=== PATIENT | female | born 1980 | race Caucasian/White ===

== ENCOUNTER 2025-02-06 09:38 | Emergency (ER) | payer SELFPAY ==
--- NOTE | 2025-02-06 09:41 | XR_ITS ---
WS: [id number] Exam: XR chest 1V portable [id number] Date/Time of Exam: 02/06/2025 10:23 AM Reason For Exam: dyspnea/cough Comparison 06/28/2007. Lungs are fully inflated and clear. Normal cardiomediastinal silhouette. Bony structures are normal in appearance. No pleural effusion. XR/XR chest 1V portable [id number] IMPRESSION: 1. Negative chest.
--- NOTE | 2025-02-06 09:41 | ECG_ITS ---
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 Measurements Intervals [place] Rate: 42 P: 0 [place]: 0 QRS: -23 QRSD: 142 T: 40 QT: 503 QTc: 420 Interpretive Statements third-degree heart block Possible junctional escape rhythm, rate of 42 bpm NONSPECIFIC INTRAVENTRICULAR CONDUCTION DELAY CRITICAL TEST RESULT No previous ECG available for comparison Electronically Signed On 02-06-2025 12:28:35 CDT by Camryn Alcantara M.D. [id number]
[2025-02-06 09:50] VITALS: BP 181/68; PULSE 43; RESP 12; TEMP 36.8; O2SAT 98; BMI 43.8
--- NOTE | 2025-02-06 10:09 | ED_ITS ---
HPI - Arrhythmia/Palpitations 2 General: Chief Complaint: Arrhythmia/Palpitations Stated Complaint: Low HR/SOB Time Seen by Provider: 02/06/25 09:41 Source: patient Mode of arrival: ambulatory Limitations: no limitations History of Present Illness: 44-year-old female states that she is no w she has been having bradycardia since October. She states that her heart rates been running in the 40s and sometimes the 30s. She states she has been having shortness of breath as well since then mainly exertional. She had 1 episode of chest pain in October denies any since then. Does not see a PCP does not take any meds has no known medical problems. Associated symptoms: Deny nausea or vomiting Related Data Allergies Allergy/AdvReac Type Severity Reaction Status Date / Time No Known Allergies Allergy Verified 02/06/25 09:57 Review of Systems 2 Const: Denies: fever(s), chills, body aches or change in appetite ENMT: Denies: throat pain or dental pain Card: Reports: chest pain and irregular heart rhythm Resp: Reports: dyspnea GI: Denies: abdominal pain, nausea, vomiting or diarrhea Musc: Denies: neck pain or back pain Skin/Breast: Denies: rash Neuro: Denies: headache(s) Physical Exam 2 Const: COMMON NORMALS: no acute distress, patient oriented x3 and healthy appearing HENMT: COMMON NORMALS: normocephalic and atraumatic HEAD & SCALP: n ormocephalic and atraumatic Eye: COMMON NORMALS: conjunctivae normal CONJUNCTIVA: Yes conjunctivae normal Neck/C-Spine: COMMON NORMALS: full ROM and supple Chest: COMMONS NORMALS: normal inspection of the chest Resp: COMMON NORMALS: normal respiratory effort, No retractions, No use of accessory muscles and clear to auscultation bilaterally AUSCULTATION: clear to auscultation bilaterally Cardio: COMMON NORMALS: regular rhythm and No murmurs present (Cardio) R ATE: bradycardic RHYTHM: regular rhythm Extremity: COMMON NORMALS: normal to inspection and full ROM Neuro: COMMON NORMALS: patient oriented x3, moves all extremities and no focal motor deficits Psych: COMMON NORMALS: mental status grossly normal, Normal thought process present and cooperative THOUGHT PROCESS: Normal thought process present Skin: COMMON NORMALS: no rashes or lesions noted and no wounds GENERAL SKIN EXAM: no rashes or lesions noted Course 2 Vital Signs: Vital signs: Vital Signs Temperature 98.2 F 02/06/25 09:50 Pulse Rate 78 02/06/25 10:32 Respiratory Rate 16 02/06/25 10:32 Blood Pressure 200/63 02/06/25 10:32 Pulse Oximetry 96 02/06/25 10:32 Oxygen Delivery Me thod Room Air 02/06/25 10:32 MDM - Arrhythmia/Palpitations Medical Decision Making Patient presents here with bradycardia EKG shows third-degree heart block we do not have capability to do pacemakers at this time I did speak to [facility] ER set her up for transfer ER to ER. Patient does not want to go by EMS I went and spoke to her and told her that this is a life-threatening condition and strongly recommended going by ambulance she states she is concerned with the cost states that she does not feel unstable and wants to go by POV. I did instruct her that with third-degree heart block she could be a unstable quickly and I did strongly feel she need to go by ambulance she understands this and did sign out AMA and is going to go straight to [facility] by private vehicle Medical Records I reviewed the patient's medical records. Lab Data I reviewed the patient's lab results. 02/06/25 10:09 02/06/25 10:09 Radiology Impressions Chest X-Ray 02/06/25 09:41 IMPRESSION: 1. Negative chest. Laboratory Results WBC 8.46 10^3/uL (3.29-11.43) 02/06/25 10:09 RBC 5.46 10^6/uL (3.85-5.65) 02/06/25 10:09 Hgb 14.80 g/dL (11.27-16.99) 02/06/25 10:09 Hct 46.8 % (36-47) 02/06/25 10:09 MCV 85.7 fl (85-98) 02/06/25 10:09 MCH 27.1 pg (27-33) 02/06/25 10:09 MCHC 31.6 g/dL (30-55) 02/06/25 10:09 RDW 13.1 % (12.1-15.1) 02/06/25 10:09 Plt Count 318 10^3/cmm (157-399) 02/06/25 10:09 MPV 10.3 fL (7.4-10.4) 02/06/25 10:09 Neut % (Auto) 70.6 % 02/06/25 10:09 Lymph % (Auto) 19.5 % 02/06/25 10:09 [place] % (Auto) 5.4 % 02/06/25 10:09 Eos % (Auto) 3.4 % 02/06/25 10:09 Baso % (Auto) 0.6 % 02/06/25 10:09 Neut # (Auto) 5.97 10^3/uL (1.8-7.7) 02/06/25 10:09 Lymph # (Auto) 1.7 10^3/uL (0.8-4.8) 02/06/25 10:09 [place] # (Auto) 0.5 10^3/uL (0.2-0.9) 02/06/25 10:09 Eos # (Auto) 0.3 10^3/uL (0.0-0.8) 02/06/25 10:09 Baso # (Auto) 0.1 10^3/uL (0.0-0.1) 02/06/25 10:09 Nucleated RBC % (auto) 0 % 02/06/25 10:09 Nucleated RBCs # 0.0 /100WBC 02/06/25 10:09 D-Dimer 0.28 ug/mLFEU (0-0.59) 02/06/25 10:09 Sodium 132 mmol/L (136-145) L 02/06/25 10:09 Potassium 4.9 mmol/L (3.5-5.1) 02/06/25 10:09 Chloride 93 mmol/L (98-107) L 02/06/25 10:09 Carbon Dioxide 26 mmol/L (22-29) 02/06/25 10:09 Anion Gap 17.9 (5-19) 02/06/25 10:09 BUN 10 mg/dL (6-20) 02/06/25 10:09 Creatinine 0.6 mg/dL (0.5-0.9) 02/06/25 10:09 GFR Calculation 107.6 mL/min (90-130) 02/06/25 10:09 Glucose 377 mg/dL (65-115) H 02/06/25 10:09 Calculated Osmolality 289 mOsm/kg (285-295) 02/06/25 10:09 Calcium 8.9 mg/dL (8.5-10.5) 02/06/25 10:09 Magnesium 1.8 mg/dL (1.7-2.3) 02/06/25 10:09 Total Bilirubin 0.5 mg/dL (0.15-1.2) 02/06/25 10:09 AST 16 U/L (0-32) 02/06/25 10:09 ALT 20 U/L (0-33) 02/06/25 10:09 Alkaline Phosphatase 84 U/L (35-105) 02/06/25 10:09 Troponin T Baseline 14 ng/L (0-10) H 02/06/25 10:09 NT-Pro-B Natriuret Pep 475 pg/mL (0-125) H 02/06/25 10:09 Total Protein 6.3 g/dL (6.6-8.7) L 02/06/25 10:09 Albumin 3.9 g/dL (3.5-5.2) 02/06/25 10:09 Globulin 2.4 g/dL (1.3-4.6) 02/06/25 10:09 TSH 2.52 uIU/mL (0.27-4.20) 02/06/25 10:09 Influenza A (PCR) Negative (Negative) 02/06/25 10:30 Influenza Type B (PCR) Negative (Negative) 02/06/25 10:30 RSV (PCR) Negative (Negative) 02/06/25 10:30 SARS-CoV-2 (PCR) Negative (Negative) 02/06/25 10:30 All radiology interpretation(s) finalized by discharge EKG Data EKG 1: I personally reviewed and interpreted this EKG as follows: EKG interpretation date: 02/06/25 EKG interpretation time: 10:10 Interpretation: third degree block hr [address] elevation qrs 142 qtc 442 Other EKG comments: Chest X-Ray 02/06/25 09:41 IMPRESSION: 1. Negative chest. Critical Care Time 2 Critical Care Time: Critical Care Time: Yes Total Critical Care Time: 40 Attestation: The high probability of a clinically significant, sudden or life threatening deterioration of the patient's cv system(s) required my full and direct attention, intervention and personal management. The critical care time is as shown. This time is in addition to time spent performing any reported procedures but includes the following: [x] Data and vital sign review and interpretation [x] Patient assessment, examination and intervention [x] Documentation [x] Medication orders and management Discharge Plan Discharge Patient Disposition: Left Against Medical Advice Clinical Impression: Third degree heart block Condition: Stable Print Language: Kiswahili Coding Level of Care Code ED Senior Hr Generalist for Fausto Elliott
[2025-02-06 10:24] LABS: Basophils # 0.1 10^3/uL (0.0-0.1); Basophils % 0.6 %; Eosinophils # 0.3 10^3/uL (0.0-0.8); Eosinophils % 3.4 %; Hematocrit 46.8 % (36-47); Lymphocytes # 1.7 10^3/uL (0.8-4.8); Lymphocytes % 19.5 %; Mean Corpuscular HGB Conc 31.6 g/dL (30-55); Mean Corpuscular Hemoglobin 27.1 pg (27-33); Mean Corpuscular Volume 85.7 fl (85-98); Mean Platelet Volume 10.3 fL (7.4-10.4); Monocytes # 0.5 10^3/uL (0.2-0.9); Monocytes % 5.4 %; Neutrophils # 5.97 10^3/uL (1.8-7.7); Neutrophils % 70.6 %; Nucleated Red Blood Cells % 0 %; Platelet Count 318 10^3/cmm (157-399); Red Blood Count 5.46 10^6/uL (3.85-5.65); Red Cell Distribution Width 13.1 % (12.1-15.1); White Blood Count 8.46 10^3/uL (3.29-11.43)
[2025-02-06 10:32] VITALS: BP 200/63; PULSE 78; RESP 16; O2SAT 96
[2025-02-06 10:41] LABS: D Dimer 0.28 ug/mLFEU (0-0.59)
[2025-02-06 10:42] LABS: Troponin(5th) Baseline 14 ng/L (0-10)
[2025-02-06 10:59] LABS: Alanine Aminotransferase 20 U/L (0-33); Albumin Level 3.9 g/dL (3.5-5.2); Alkaline Phosphatase 84 U/L (35-105); Anion Gap 17.9 (5-19); Aspartate Amino Transferase 16 U/L (0-32); Blood Urea Nitrogen 10 mg/dL (6-20); Calcium 8.9 mg/dL (8.5-10.5); Carbon Dioxide 26 mmol/L (22-29); Chloride 93 mmol/L (98-107); Creatinine Clr Calc Pharmacy 162.3198; Globulin 2.4 g/dL (1.3-4.6); Glomerular Filtration Rate 107.6 mL/min (90-130); Glucose 377 mg/dL (65-115); NT Pro B Type Natriuretic Pept 475 pg/mL (0-125); Osmolality Calculated 289 mOsm/kg (285-295); Potassium 4.9 mmol/L (3.5-5.1); Sodium 132 mmol/L (136-145); Thyroid Stimulating Hormone 2.52 uIU/mL (0.27-4.20); Total Bilirubin 0.5 mg/dL (0.15-1.2); Total Protein 6.3 g/dL (6.6-8.7)
[2025-02-06 11:07] LABS: Magnesium 1.8 mg/dL (1.7-2.3)
[2025-02-06 11:18] LABS: Influenza A NEGATIVE (Negative); Influenza B NEGATIVE (Negative); Respiratory Syncytial Virus Ce NEGATIVE (Negative); SARS-CoV-2 PCR NEGATIVE (Negative)
[2025-02-06 11:32] VITALS: BP 195/76; PULSE 76; RESP 18; O2SAT 97
--- NOTE | 2025-02-06 11:41 | ECG_ITS ---
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 Measurements Intervals [place] Rate: 40 P: 0 [place]: 0 QRS: -36 QRSD: 138 T: -30 QT: 537 QTc: 442 Interpretive Statements third-degree heart block possible junctional escape rhythm NONSPECIFIC INTRAVENTRICULAR CONDUCTION DELAY CRITICAL TEST RESULT Compared to ECG 02/06/2025 10:10:25 No significant changes Electronically Signed On 02-06-2025 19:31:17 CDT by Camryn Alcantara M.D. [id number]
== END 2025-02-06 11:42 | disposition left against medical advice (07) ==
PROVIDERS: Family Medicine; Emergency Provider Emergency Medicine
DX: I44.2 Atrioventricular block, complete (principal); Z11.52 Encounter for screening for COVID-19
CPT/HCPCS: 36415; 71045; 80053; 83735; 83880; 84443; 84484; 85025; 85378; 87637; 93005; 99285